=== PATIENT | female | born 1995 | race Caucasian/White ===

== ENCOUNTER 2024-04-24 01:20 | Emergency (ER) | payer OTHER ==
[2024-04-24 01:27] VITALS: BP 132/100; PULSE 80; RESP 16; TEMP 97.9; BMI 41.3
[2024-04-24] MEDS: predniSONE 20 MG TABLET (UD) PO ONE (01:37)
[2024-04-24] MEDS ORDERED: predniSONE 20 MG TABLET (UD) ONE (01:38)
[2024-04-24 13:32] LABS: HIV INTERPRETATION NEGATIVE (NEGATIVE)
== END 2024-04-24 01:41 | disposition home or self-care (01) ==
LOC: FER 01:20
DX: L50.0 Allergic urticaria (principal); R21 Rash and other nonspecific skin eruption
CPT/HCPCS: 36415; 86803; 87389; 99283-25